=== PATIENT | female | born 1970 | race Caucasian/White ===

== ENCOUNTER 2017-05-10 10:47 | Emergency (ER) | payer OTHER ==
--- NOTE | 2017-05-10 11:32 | ER PHYSICIAN DOCUMENTATION ---
Physician Documentation [facility] Name:Magda Cottrell Age:46 yrs Sex:Female :1970 Arrival Date:05/10/2017 Time:10:47 Bed1 Private MD:[facility] ED, John Disposition: 05/10/17 11:22 Discharged to Home/Self Care. Impression: Rash. - Condition is Good. - Discharge Instructions: ERYTHEMA. - Prescriptions for hydrocortisone 0.5 % Topical cream - apply 1 application by TOPICAL route 3 times per day; 1 tube. Hydroxyzine HCl 25 mg Oral Tablet - take 1 tablet by ORAL route every 6 hours As needed; 30 tablet. Prednisone 20 mg Oral Tablet - take 1 tablet by ORAL route once daily for 5 days; 5 tablet. - Medical Reconciliation form form. - Follow up: Private Physician; When: 2 - 3 days; Reason: Continuance of care. - Problem is new. - Symptoms have improved. HPI: 05/10 12:00 This 46 yrs old Female presents to ER via Private Vehicle with complaints of jm Rash. 12:00 The patient presents with a rash that is though to be caused by an unknown cause. The jm rash is located on the palmar aspect of right forearm. The rash can be described as erythematous, patchy, raised. Onset: The symptom(s)/episode began/occurred yesterday, and became worse today. Associated signs and symptoms: Pertinent positives: itching, Pertinent negatives: fever, Pain. Treatment given at home: none. The patient has experienced similar episodes in the past. Pt has been seen by multiple IM doctors, a olive brine tester, and an horse trainer about this rash. Pt says she might have gotten exposed to acrylics again. Pt sees her olive brine tester again in 2 days, but this R forearm rash is getting larger and more itchy. Steroids have worked in the past. . Historical: - Allergies: No known drug Allergies; - Home Meds: 1. Hydroxyzine Oral 2. Doxepin Oral 3. Remicade - PMHx: CHRONS; - PSHx: Cholecysectomy; - Tetanus: < 10 years. - Ebola Screening: : Patient negative for fever greater than or equal to 101.5 degrees Fahrenheit, and additional compatible Ebola Virus Disease symptoms. - Immunization history: Flu Vaccine < 1 year. - Social history: Smoking status: Patient uses tobacco products, current every day smoker. ROS: 12:00 MS/extremity: Positive for rash. 12:00 Skin: Positive for rash. Exam: 12:00 Constitutional: The patient appears alert, awake. jm 12:00 ENT: Posterior pharynx: is normal, swelling, is not appreciated. 12:00 Respiratory: Respirations: normal, Breath sounds: wheezing, is not appreciated. 12:00 Skin: cellulitis, is not appreciated, contact dermatitis, on the palmar aspect of right forearm. 12:00 Psych: Behavior/mood is pleasant, cooperative, anxious, Affect is calm. Vital Signs: 11:02 BP 137 / 107; Pulse 100; Resp 18; Pulse Ox 95% on R/A; Weight 68.04 kg; Height 5 ft. 4 rh in. (162.56 cm); Pain 0/10; 11:30 BP 122 / 86; Pulse 89; Resp 17; Pulse Ox 95% on R/A; rh 11:02 Body Mass Index 25.75 (68.04 kg, 162.56 cm) rh MDM: 10:59 Patient medically screened. 12:05 Differential diagnosis: allergic reaction. Data reviewed: vital signs, nurses notes, and as a result, I will discharge patient. Counseling: I had a detailed discussion with the patient and/or guardian regarding: the historical points, exam findings, and any diagnostic results supporting the discharge/admit diagnosis, the need for outpatient follow up, an allergy/record center specialist, a olive brine tester. ED course: Pt is miserable b/c of this itchy rash. Pt wants treatment, so steroids were given. Pt can f/u w derm in 2 days. . Dispensed Medications: No medications were administered Signatures: Werner Johnson MD MD jm Hofsess, Rachel
--- NOTE | 2017-05-10 11:32 | ER NURSING DOCUMENTATION ---
Nurse's Notes [facility] Name:Magda Cottrell Age:46 yrs Sex:Female :1970 Arrival Date:05/10/2017 Time:10:47 Bed1 Private MD:Berry Hill Diagnosis:Rash Presentation: 05/10 10:57 Acuity: CHRYSTAL 4 rh 10:57 Presenting complaint: Patient states: Pt has rash on the right arm - red and raised. Pt rh states that she has seen her PCP and derm to try and figure out what is causing the rash. Pt works at a nail salon, she thinks she is allergic to something there and over the weekend her rash got worse after doing acrylic nails, she is here today because the itching got worse on the arm and on her cheek. Transition of care: Home. Onset: The symptoms/episode began/occurred last week. Anaphylaxis evaluation, no signs or symptoms of anaphylaxis were noted. 10:57 Method Of Arrival: Private Vehicle Triage Assessment: 11:01 General: Appears in no apparent distress, Behavior is anxious, cooperative. Pain: rh Denies pain. EENT: Oral mucosa is moist. Neuro: Level of Consciousness is awake, alert, obeys commands. Cardiovascular: Capillary refill < 3 seconds. Respiratory: Airway is patent. GI: Denies nausea. : No deficits noted. Derm: Skin is intact, is healthy with good turgor, Skin is pink, warm & dry. Rash noted that is macular, red, raised, urticaria, on left cheek, right wrist and palmar aspect of right forearm. Historical: - Allergies: No known drug Allergies; - Home Meds: 1. Hydroxyzine Oral 2. Doxepin Oral 3. Remicade - PMHx: CHRONS; - PSHx: Cholecysectomy; - Tetanus: < 10 years. - Ebola Screening: : Patient negative for fever greater than or equal to 101.5 degrees Fahrenheit, and additional compatible Ebola Virus Disease symptoms. - Immunization history: Flu Vaccine < 1 year. - Social history: Smoking status: Patient uses tobacco products, current every day smoker. Screenin:02 Infectious Disease Risk None. Abuse screen: Denies threats or abuse. Denies injuries rh from another. Nutritional screening: No deficits noted. Assessment: 11:02 See Triage Assessment done by same RN. rh Vital Signs: 11:02 BP 137 / 107; Pulse 100; Resp 18; Pulse Ox 95% on R/A; Weight 68.04 kg; Height 5 ft. 4 rh in. (162.56 cm); Pain 0/10; 11:30 BP 122 / 86; Pulse 89; Resp 17; Pulse Ox 95% on R/A; 11:02 Body Mass Index 25.75 (68.04 kg, 162.56 cm) ED Course: 10:55 Patient arrived in ED. jl 10:56 Berry Hill MD is Private Physician. 10:57 Brianda Wells is Primary Nurse. 10:57 Triage completed. 11:02 Notified ED Physician of patient's arrival and chief complaint. Dr. Johnson notified. 11:02 Valuables Remains with patient Patient has correct armband on for positive rh identification. Bed in low position. 11:11 Werner Johnson MD is Attending Physician. conrad Administered Medications: No medications were administered Outcome: : Discharge ordered by . 11:30 Discharged to home ambulatory. 11:30 Condition: improved 11:30 Discharge Assessment: Patient awake, alert and oriented x 3. No cognitive and/or functional deficits noted. Patient verbalized understanding of disposition instructions. 11:30 Discharge instructions given to patient, Instructed on discharge instructions, follow up and referral plans. medication usage, Demonstrated understanding of instructions, medications, Prescriptions given X 3. 11:31 Patient left the ED. 05/11 09:18 Discharge F/U Call: Unable to reach: no answer st Signatures: Melina Vegas RN RN st Meyer, John, MD MD jm Hofsess, Rachel Meng Nicolas
== END 2017-05-10 11:32 | disposition home or self-care (01) ==
LOC: ER 10:47
DX: R21 Rash and other nonspecific skin eruption (principal); Z79.899 Other long term (current) drug therapy; F17.210 Nicotine dependence, cigarettes, uncomplicated
CPT/HCPCS: 99282